=== PATIENT | female | born 1945 | race Caucasian/White ===

== ENCOUNTER → 2021-07-03 13:58 | Outpatient (CLI) | payer MEDICARE, OTHER, SELFPAY ==
--- NOTE | 2021-07-03 | DI.RAD.S_ITS ---
PROCEDURE: XR ABDOMEN MIN 2V INDICATIONS: Other specified symptoms and signs involving the d TECHNIQUE: 2 views of the abdomen were acquired. COMPARISON: None. FINDINGS: Surgical changes and devices: None. Bowel: No pneumoperitoneum. The bowel gas pattern is normal. No small bowel obstruction. Increased quantity of solid colonic stool is present. Soft tissues: No masses; visualized solid organ contours appear normal in size. Several scattered coarse calcifications in the bilateral upper quadrants, potentially liver and splenic granulomas. These range in size from 7 mm to 10 mm. Moderate abdominal aortic atherosclerosis. Bones: No suspicious bony abnormalities. Moderate focal leftward scoliosis with the apex at L3-4. IMPRESSION: 1. Colonic obstipation. 2. Bilateral upper quadrant calcifications, potentially evidence of remote granulomatous disease. Dictated by: Yanet Newman M.D. on 07/03/2021 at 16:56 Approved by: Yanet Newman M.D. on 07/03/2021 at 16:58
== END ==
PROVIDERS: PCP Registered Nurse; Referring Provider Internal Medicine Gastroenterology; Visit Provider Internal Medicine Gastroenterology
DX: R19.8 Other specified symptoms and signs involving the digestive system and abdomen (principal); K59.00 Constipation, unspecified; M41.86 Other forms of scoliosis, lumbar region; I70.0 Atherosclerosis of aorta
CPT/HCPCS: 74019

== ENCOUNTER → 2021-07-19 10:34 | Outpatient (CLI) | payer MEDICARE, OTHER, SELFPAY ==
--- NOTE | 2021-07-19 | DI.RAD.S_ITS ---
PROCEDURE: XR ABDOMEN MIN 2V INDICATIONS: Other specified symptoms and signs involving the digestive s TECHNIQUE: 2 views of the abdomen were acquired. COMPARISON: [facility], CR, XR ABDOMEN MIN 2V, 07/03/2021, 14:07. FINDINGS: Surgical changes and devices: None. Bowel: Large amount of stool is present. No specific transition point identified. Soft tissues: No masses; visualized solid organ contours appear normal in size. No suspicious abdominal calcifications. Bones: Levocurvature of the lumbar spine and diffuse discogenic changes. IMPRESSION: No specific transition point seen at this time although if the patient's symptoms do not improve, continued surveillance with abdominal series radiographs could be performed. Large amount of stool. This appears grossly unchanged to minimally increased since the prior study from 07/03/21. Dictated by: Andrew Goodman M.D. on 07/19/2021 at 13:31 Approved by: Andrew Goodman M.D. on 07/19/2021 at 13:32
== END ==
PROVIDERS: PCP Registered Nurse; Referring Provider Internal Medicine Gastroenterology; Visit Provider Internal Medicine Gastroenterology
DX: R19.8 Other specified symptoms and signs involving the digestive system and abdomen (principal)
CPT/HCPCS: 74019

== ENCOUNTER → 2023-01-03 10:36 | Outpatient (CLI) | payer MEDICARE, OTHER, SELFPAY ==
--- NOTE | 2023-01-03 | DI.MRI.S_ITS ---
PROCEDURE: MR LUMBAR SPINE WO CON INDICATIONS: Spinal stenosis, lumbar region with neurogenic claudication TECHNIQUE: Noncontrast sagittal T1 spin echo and T2 fast echo, coronal T2, sagittal STIR, and T2 fast spin echo through the lumbar spine. COMPARISON: [facility], CR, XR ABDOMEN MIN 2V, 07/19/2021, 10:37. FINDINGS: Image quality: Excellent. Alignment and Curvature: 5 lumbar type vertebral bodies are present by plain film. There is moderate leftward curvature of the mid lumbar spine. Loss of normal lumbar lordosis. 3 mm of retrolisthesis of L1 on L2, L2 on L3, and L3 on L4. 7 mm of anterolisthesis of L4 on L5. Bone Marrow: Marrow is of normal overall signal. No acute vertebral body compression fractures. Mild reactive signal throughout the endplates of the lumbar and lower thoracic spine. Spinal Cord: Conus medullaris terminates at the L1-L2 disc space level. Visualized cord demonstrates normal signal and size. Paraspinous Soft Tissues: No paravertebral masses. T12-L1: Moderate disc desiccation. Mild disc height loss and diffuse disc bulge. Mild facet and ligamentum flavum hypertrophy. No significant canal, or foraminal stenosis. L1-L2: Moderate disc desiccation. Mild diffuse disc bulge. Mild facet and ligamentum flavum hypertrophy. Mild canal stenosis. No foraminal stenosis. L2-L3: Moderate disc height loss and desiccation. Mild diffuse disc bulge. Mild facet and ligamentum flavum hypertrophy. Mild canal stenosis. Mild bilateral foraminal stenosis. L3-L4: Moderate disc height loss and desiccation. Mild diffuse disc bulge. Mild facet and ligamentum flavum hypertrophy. Mild epidural lipomatosis. Mild canal stenosis. Mild bilateral foraminal stenosis. L4-L5: Moderate disc height loss and desiccation. Mild diffuse disc bulge. Moderate facet hypertrophy. Mild ligamentum flavum hypertrophy and epidural lipomatosis. Mild canal stenosis. Mild bilateral foraminal stenosis. L5-S1: Moderate disc desiccation. Mild disc height loss and diffuse disc bulge with superimposed left far lateral protrusion. Mild bilateral facet hypertrophy. Mild canal stenosis. Moderate to severe left and mild right foraminal stenosis. Mild left L5 nerve root compression. IMPRESSION: 1. Multilevel degenerative disc and facet disease, as well as ligamentum flavum hypertrophy and epidural lipomatosis. 2. Mild multilevel canal stenosis. 3. Multilevel foraminal stenoses, worst at L5-S1 where there is associated intraforaminal nerve root compression. Recommend correlation with clinical symptoms to ascertain relevance of this finding. Dictated by: Stacy Noe M.D. on 01/03/2023 at 11:45 Transcribed by: ASHLEY on 01/03/2023 at 11:48 Approved by: Stacy Noe M.D. on 01/03/2023 at 15:53
== END ==
PROVIDERS: PCP Registered Nurse; Referring Provider Orthopaedic Surgery Orthopaedic Surgery of the Spine; Visit Provider Orthopaedic Surgery Orthopaedic Surgery of the Spine
DX: M48.062 Spinal stenosis, lumbar region with neurogenic claudication (principal); M48.07 Spinal stenosis, lumbosacral region; M51.36 Other intervertebral disc degeneration, lumbar region; M51.37 Other intervertebral disc degeneration, lumbosacral region; M47.896 Other spondylosis, lumbar region; M47.897 Other spondylosis, lumbosacral region
CPT/HCPCS: 72148

== ENCOUNTER → 2023-01-24 12:42 | Outpatient (CLI) | payer MEDICARE, OTHER, SELFPAY ==
--- NOTE | 2023-01-24 | DI.CT.S_ITS ---
PROCEDURE: CT LUMBAR SPINE WO CON INDICATIONS: Spinal stenosis, lumbar region with neurogenic claudication TECHNIQUE: Noncontrast 3 mm thick sections acquired from the T12 level to the sacrum. Sagittal and coronal reformats were constructed. For radiation dose reduction, the following was used: automated exposure control. COMPARISON: [facility], MR, MR LUMBAR SPINE WO CON, 01/03/2023, 10:48. FINDINGS: Image quality: Excellent. Bones: There is leftward scoliotic curvature with apex at L3-4. There is trace retrolisthesis of L1 on L2, trace anterolisthesis of L4 on L5, trace retrolisthesis of L5 on S1. Multilevel moderate to severe degenerative disc space narrowing most severe at L4-5 and L5-S1 with vacuum disc at L5-S1. Reactive endplate changes are present most prominent at L3-4 and L5-S1. Multilevel disc bulges are present from T12-L1 through L5-S1. In addition, multilevel mild spinal stenosis is present from L1-2 through L5-S1. Multilevel foraminal narrowing is present, mild L2-3, L3-4, L4-5 and moderate to severe left and mild right L5-S1. There appears to be mild compression of the exiting left L5 nerve root at L5-S1. Facet and ligamentum flavum hypertrophy are present. Soft tissues: No retroperitoneal masses or hematomas. Visualized aorta is normal in caliber. Prominent colonic diverticula as well as colonic stool is present. No obstruction. IMPRESSION: Multilevel spinal stenosis secondary to disc bulge with contributing effect of facet/ligamentum flavum arthropathy. Multilevel foraminal narrowing most severe at L5-S1 with compression of the exiting left L5 nerve root. Dictated by: Jacqueline Alanis M.D. on 01/24/2023 at 16:53 Approved by: Jacqueline Alanis M.D. on 01/24/2023 at 16:56
== END ==
PROVIDERS: PCP Registered Nurse; Referring Provider Orthopaedic Surgery Orthopaedic Surgery of the Spine; Visit Provider Orthopaedic Surgery Orthopaedic Surgery of the Spine
DX: M48.061 Spinal stenosis, lumbar region without neurogenic claudication (principal)
CPT/HCPCS: 72131

== ENCOUNTER 2023-02-27 06:03 | Inpatient (IN) | payer MEDICARE, OTHER, SELFPAY ==
[2023-02-14 08:35] VITALS: BMI 26.2
[2023-02-27] VITALS (18 sets, daily range): BP systolic 110–161; BP diastolic 62–90; PULSE 53–113; RESP 12–19; TEMP 35.8–36.5; O2SAT 92–100; BMI 26.1
--- NOTE | 2023-02-27 | DI.RAD.S_ITS ---
PROCEDURE: XR LUMBAR SPINE 2-3V INDICATIONS: L4-5 L5-S1 TLIF TECHNIQUE: 2 spot fluoroscopic intraoperative of the lumbar spine were acquired. COMPARISON: [facility], XR LUMBAR SPINE 2 OR 3 VIEWS, 01/24/2023, 11:34. FINDINGS: Spot fluoroscopic intraoperative images demonstrate interval postsurgical changes from posterior fixation at L4-5 and L5-S1 with pedicle screws, interbody rods, and disc spacers. IMPRESSION: Status post posterior spinal fusion from L4 through S1. Approved by: Jah Magana M.D. on 02/27/2023 at 13:41
[2023-02-27] MEDS: LACTATED RINGERS 1,000 ML 42 ML IV ×2 (07:13→09:59)
--- NOTE | 2023-02-27 07:42 | PM.PREOP ---
Pre-operative Note COVID-19 Criteria for continued procedure: Expected advancement of disease process, Possibility delay results in more complex future surgery or treatment, Increased loss of function, Continuing or worsening of significant or severe pain, Deterioration of the patient's condition or overall health and Delay expected to result in less-positive ultimate med/surg outcome Interval Note History & Physical reviewed/Exam performed by Physician: Yes Changes to H&P: No
[2023-02-27] MEDS: CEFAZOLIN 2 GM/100 ML PREMIX 100 ML IV ×3 (08:00→23:06)
--- NOTE | 2023-02-27 08:21 | SUR.OPER ---
Prone on spine table, head in foam head support, padded chest and pelvic supports, gel pad at knees, lower legs supported by pillows; nipples, genitalia and toes free of pressure, arms secured on foam padded arm boards at <90 degrees abduction. Tape over blanket at thigh secured to table.
[2023-02-27] MEDS: BUPIVACAINE 0.25% (PF) 60 ML, EPINEPHrine 0.15 MG INJ (08:26)
[2023-02-27] MEDS: BUPIVACAINE LIPOSOME 266 MG/20 ML VIAL INJ (08:27)
--- NOTE | 2023-02-27 11:38 | PM.OP.1 ---
Operative Date/Time/Diagnoses Date of procedure: 02/27/23 Time of procedure: 08:15 Pre-op diagnosis: 1. L4-5, L5-S1 spondylolisthesis 2. Lumbar scoliosis 3. Lumbar spinal stenosis Post-op diagnosis: same Procedure & Clinicians Procedure: 1. L4-5, L5-S1 Postero-lateral and posterior interbody fusion 2. L4-5, L5-S1 interbody cage placement. 3. L4-5, L5-S1 decompressive laminectomy with bilateral facetecomies 4. L4-5, L5-S1 Posterior segmental instrumentation 5. Kelley of bone marrow from iliac crest 6. Utilization of microsurgical technique and operating microscope 7. Utilization of robotic assisted navigation Same procedure as scheduled: Yes Indications: Patient has been having chronic back pain and worsening lumbar radiculopathy. Patient failed multiple conservative management with worsening pain weakness and numbness in her lower extremity. Patient has been having difficulty performing activity of daily living. After discussing risks benefits of treatment options, patient elected proceed with surgery. Surgeon: Keith Martin Director Of Food And Nutrition Services: Altagracia Del Rio Click Yes if Unassisted: No Anesthesia Type: General Operative Notes Closure Type: primary Specimen(s): none sent Prosthetic devices, grafts, tissues, transplants, or devices: Globus CREO MIS screws, Rise cages Applied: catheter Estimated Blood Loss (mL): 150 Blood products transfused: none Procedure in detail: Patient was seen in the preoperative area. Risks and benefits of the surgery was discussed with the patient. Informed consent was obtained from the patient and placed in the chart. Surgical site was marked. Patient was taken to the operative room. General anesthesia was administered. Prophylactic antibiotic was given to the patient less than 30 min before the incision was made. Patient was placed into a prone position on the Elkin table. Patient's back was then prepped and draped in the sterile fashion. Time-out was performed at this time. After patient was prepped and draped, patient's PSIS was palpated and marked bilaterally. Small 1 cm incision was made over the PSIS for placement of the reference probes. Two trocar was placed into the PSIS 1 on each side. The reference probe was attached to the trocar of the reference apparatus. At this time the C-arm imaging was used to confirm AP and lateral of L4-L5, L5-S1 vertebrae and merged the C-arm imaging using the [employer] robotic navigation system with the CT of the lumbar spine. After successful merging was completed and confirmed, skin marker was used to baltazar out the skin incision using the [employer] robotic arm. Bilateral incision was made at this time. Pre templated trajectory was used and guided using the [employer] robotic navigation system for bilateral L4, L5, S1 pedicle screw placement. This was done by using the robotic arm to guide the high-speed bur to make a cortical entry point. Next a drill was placed also using the robotic arm and guided using the navigation system drilling partially through bilateral L4, L5 and S1 pedicles. Next L4, L5, S1 pedicle screws it was pre templated and measured was placed onto the power driver license agent and inserted into the pedicles bilaterally. After all 6 screws were placed C-arm imaging was taken of both AP and lateral to confirm the placement. Excellent placement of the screws were confirmed and a matched precisely with the pre planned screw placement using the navigation system. MARs retractor was inserted using [employer] guidence. Globus MARS retractors was placed inside the incision and docked onto the L4 and L5 lamina. Using microsurgical technique and operating microscope, a L4, L5 laminectomy and L4-5, L5-S1 facetectomy was performed using a Kerrison rongeur. The laminectomy and facetectomy was performed in order to decompress patient's cauda equina as well as the nerve roots exiting at the L4-5, L5-S1 level. Patient was found have severe lateral recess and neural foramen stenosis which was fully decompressed after the laminectomy facetectomy. More than 75% of the facets were removed during the process of decompression rendering L4-5, L5-S1 level grossly unstable and required a fusion procedure at the same time. The disc space at L4-5, L5-S1 was identified, and a total diskectomy was performed at L4-5, L5-S1 level. The endplates were decorticated using a rasp and shaver. The total diskectomy and decortication was performed at L4-5, L5-S1 level in order to to accomplish a L4-5, L5-S1 fusion. The local bone from the laminectomy and facetectomy was saved for local bone grafting. After the total diskectomy and decortication was completed, Trifecta bone graft material was combined with local bone that was harvested earlier. At this time, a separate skin is incision was made over the iliac crest. A Jamshidi needle was inserted into the iliac crest through a separate skin incision. 5 cc of bone marrow aspiration was obtained through the separate skin incision using a Jamshidi needle from the iliac crest. The bone marrow aspiration was combined with local bone and the Trifecta bone grafting material. The bone grafting material was placed into the L4-5, L5-S1 interbody space along with a expandable cage. The cage was expanded to its maximum height using the torque limiting screwdriver. The disc preparation as well as the cage insertion were also performed under navigation guidance. After the cage was placed, AP and lateral C-arm imaging was taken to confirm placement of the cage and excellent position was confirmed. Globus MARS retractor was inserted and docked onto the L4-5, L5-S1 posterolateral gutter on the right side. Using the power drill, posterior-lateral decortication was performed at L4-5, L5-S1 level until bleeding cortical bone was identified. The remaining bone grafting material was placed into the L4-5, L5-S1 posterior lateral gutter he order to accomplish posterolateral fusion at the L4-5, L5-S1 level. At this time the tulips were attached to the L4, L5, S1 pedicle screw shanks. After measuring the length of the rods, they were inserted into the tulips of the pedicle screws and locked in place using locking caps and torque limiting screwdriver bilaterally. Total 6 caps and 2 titanium rods was used in order to complete the posterior instrumentation construct. After all the hardware was placed, and confirmed with AP and lateral C-arm imaging, the wound was then irrigated with sterile normal saline and packed with Ray-Brenda gauze for 3 min to accomplish hemostasis. After the gauze was removed the deep fascia was closed with #1 Vicryl suture. The subcutaneous layer was closed with 2-0 Vicryl. The skin was closed with skin zeynep. Patient tolerated the procedure well. There were no complications. Neuro monitoring system was used to monitor patient's neurologic status throughout entire procedure. There was no disturbance of the neural monitoring signals throughout the case. The Operation could not have been safely performed without compromising the technical result or length of the procedure, without the assistance of a skilled surgical instrument mechanic. The surgical instrument mechanic was medically necessary for proper positioning, retraction and manipulation of instruments, proper exposure, surgical preparation, and manipulation of tissue. Complications: none Post-operative Condition: stable Disposition: PACU Plan for aftercare: Admit to inpatient hospital
[2023-02-27] MEDS: HYDROMORPHONE 2 MG INJ IV ×4 (12:22→12:44)
[2023-02-27] MEDS: OXYCODONE IR 5 MG TABLET PO ×3 (12:23→20:36)
[2023-02-27] MEDS: hydrOXYzine 50 MG/ML INJ 25 MG IM (12:48)
[2023-02-27] MEDS: LACTATED RINGERS 1,000 ML 125 ML IV (14:18)
[2023-02-27] MEDS: SENNOSIDES 8.6 MG TABLET 17.2 MG PO (20:39)
[2023-02-27] MEDS: DOCUSATE 100 MG CAPSULE PO (20:39)
[2023-02-27] MEDS: ACETAMINOPHEN 325 MG TABLET 650 MG PO (20:40)
[2023-02-27] MEDS: HYDROMORPHONE 0.5 MG INJ IV (21:19)
[2023-02-27] MEDS: METFORMIN HCL 500 MG TABLET 1000 MG PO (21:21)
[2023-02-27] MEDS: OXYCODONE IR 10 MG TABLET PO (23:06)
[2023-02-28] VITALS: BP 114/62; PULSE 94; RESP 17; TEMP 36.6; O2SAT 96
[2023-02-28] MEDS: OXYCODONE IR 10 MG TABLET PO ×4 (03:57→13:03)
[2023-02-28] MEDS: ACETAMINOPHEN 325 MG TABLET 650 MG PO ×3 (03:58→16:52)
[2023-02-28 04:00] VITALS: BP 112/62; PULSE 82; RESP 16; TEMP 36.3; O2SAT 97
[2023-02-28 05:31] LABS: Hematocrit 27.1 % (36-46); Hemoglobin 9.3 g/dL (12.0-16.0)
[2023-02-28] MEDS: PANTOPRAZOLE DR 40 MG TABLET PO (07:00)
[2023-02-28] MEDS: LACTATED RINGERS 1,000 ML 125 ML IV (07:06)
--- NOTE | 2023-02-28 07:08 | PM.PNPO.1 ---
Subjective Subjective Date Patient Seen: 02/28/23 Time Patient Seen: 07:09 Interval history: Patient states her pain was severe overnight. No fever or chills. No nausea or vomiting. Patient has not yet been out of bed. Exam Vital Signs (past 8 hours): - 02/28/23 00:00 02/28/23 04:00 Temperature 97.9 F 97.3 F L Pulse Rate 94 H 82 Respiratory Rate 17 16 Blood Pressure 114/62 112/62 Pulse Oximetry 96 97 Oxygen Flow Rate 2 2 Oxygen Delivery Method Nasal Cannula Oxygen Flow Rate 2 Narrative Exam Narrative: 77-year-old female resting comfortably in bed in no apparent distress. Motor functions intact bilateral lower extremities. Sensation grossly intact to light touch bilateral lower extremities. Const General: cooperative and comfortable Nutritional Appearance: average body habitus Orientation: alert Resp Effort & Inspection: normal respiratory effort and able to speak in complete sentences Objective Labs 02/28/23 04:30 Labs: Laboratory Results - last 24 hr 02/28/23 04:30 Hgb 9.3 L Hct 27.1 L PFSH Medical History Asthma Depression Diabetes (~2020) Diverticulosis Elevated cholesterol Hearing impaired HTN (hypertension) Sciatica Spinal stenosis TIA (transient ischemic attack) (~2020) Surgical History History of hysterectomy Hx of bilateral cataract extraction Hx of tubal ligation Social History household members: spouse Smoking Status: Former smoker Assessment & Plan Post-op Postoperative Procedures: Procedures Operation Date: 02/27/23 07:45 Actual Procedure Side Surgeon p L4-5, L5-S1 TLIF w. posterior instrument-Robot Keith Martin MD Postoperative day: 1 Postoperative status: marginal pain control Postoperative status narrative: Progressing as expected status post L4-L5, L5-S1 fusion Postoperative plan narrative: Multimodal pain management Mobilize with physical therapy, limit bending, twisting, lifting Discharge likely home today or tomorrow. Quality VTE Deep Vein Thrombosis/Pulmonary Embolism Present on Admission: No
[2023-02-28] MEDS: NAPROXEN 250 MG TABLET PO (08:51)
[2023-02-28] MEDS: buPROPion SR 150 MG TAB 300 MG PO (08:52)
[2023-02-28] MEDS: MAGNESIUM HYDROXIDE 30 ML UDC PO (08:52)
[2023-02-28] MEDS: ASPIRIN EC 81 MG TABLET PO (08:52)
[2023-02-28] MEDS: DOCUSATE 100 MG CAPSULE PO ×2 (08:52→20:37)
[2023-02-28] MEDS: METFORMIN HCL 500 MG TABLET PO (08:52)
[2023-02-28] MEDS: AMLODIPINE 5 MG TABLET 10 MG PO (08:52)
[2023-02-28] MEDS: DULOXETINE 30 MG CAPSULE 60 MG PO (08:53)
[2023-02-28] MEDS: polyethylene glycoL 3350 17 GM POWD.PACK PO (08:53)
[2023-02-28 09:03] VITALS: BP 133/73; PULSE 85; RESP 16; TEMP 36.4; O2SAT 97
--- NOTE | 2023-02-28 09:08 | CM.DANOTE ---
DCP: Chart review for case, met with patient at bedside, they agree to case management assessment. Completed DCP assessment based on information available. Patient is a 77 year old admitted for planned lumbar surgery. 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 States her daughter lives nearby in [place] is an OT and has provided DME FWW, 4WW, commode, shower chair for her recovery. CC: Lumbar stenosis, with planned surgery by Dr. Martin PCP: Adelaide Alvarez in [place]. Payer: Medicare DCP: Home with supportive family. Danielle Owusu RN CM Discharge Planning/Care Management CM Discharge Assessment Start: 02/28/23 09:04 Freq: Status: Active Protocol: Document 02/28/23 09:04 BQ (Rec: 02/28/23 09:08 BQ [id number]) Discharge Planning Assessment Assigned Assistant Baseball Coach Danielle Owusu RN CM DPOA/Assigned Designee Name /Daughter Advance Directives? Yes Advance Directives on File Yes History Provided By Patient,Family Member Has Patient been admitted in last 30 No days? Prior Living Arrangements House Household Members spouse Type of transporation used prior to Drives own vehicle admit Independent with ADL's Yes Is patient alert and oriented? Yes Caregiver for Another No DME Already Rented / Owned Bath Bench,FWW / Walker, Bedside Commode Comment States daughter is an OT who has provided DME Barriers to Discharge No Discharge Plan Home Referrals Initiated None needed Medicare Choice List Provided No Whiteboard Updated in Patient Room with Yes name and ext. # of Assistant Baseball Coach Review Status In Process Next Review Type Continued Stay Review Pre-Anesthesia Assessment Start: 02/14/23 08:35 Freq: Status: Active Protocol: Document 02/14/23 08:35 CAB (Rec: 02/14/23 09:39 CAB [id number]) Pre-Anesthesia Assessment Patient Information Reviewed Via Phone Assessment Assessment Completed With Patient Diagnostic Results BMP/CMP,CBC,EKG Comment Outside labs/EKG scanned Primary Care Provider Adelaide Alvarez Seen Specialist in Last 12 Months Yes Specialist Seen Orthopedist Primary Language Amharic Sales Review Clerk Required No Height 162.56 cm Weight 69.4 kg Body Mass Index (BMI) 26.2 Hearing Ability Hearing Impaired,Use of Hearing Aid Visual Assist Glasses Dentition Type Teeth, Natural Present,Teeth, Missing Barriers to Learning Memory Hx Anesthesia Reactions No Hx Family Anesthesia Reaction No Hx Malignant Hyperthermia No Hx Blood Transfusions No Anesthesia Review Requested No Concrete Layer No alcohol intake current alcohol intake frequency holidays/special occasions only Smoking Status Former smoker how long ago did patient quit smoking Quit 1989 Pain Present Pain Reported Musculoskeletal Symptoms Abnormal Gait,Back Pain, Difficulty Walking,Muscle Weakness,Radiating Pain into Limb History of Falling (Recent or History of No ) Patient is completely paralyzed or No completely immobile Mental Status Oriented to own ability Is patient on oxygen? No Does patient have GRAMAJO/SOB No Hx Sleep Apnea No Currently Taking a Beta Jerica No Hx Chest Pain No Hx SOB No Hx Syncope or Dizziness No Anti-Coagulant Therapy No Has a Video Game Animator No Cardiac Testing No Hx Pacemaker/ICD No Pacemaker Rep Required? No Cardiac Clearance Received Not Applicable Diet Type At Home Regular Dysphagia No Gastrointestinal Symptoms Constipation,Diarrhea Bladder Pattern Frequency,Nocturia Urinary Catheter Present No Hx Urinary Self Catheterization No Diabetes Yes: Checks blood sugar every other day HgbA1C 6.5 Date 01/14/23 Patient No Lactating No Hx Drug Resistant Organism No Presence of External or Internal Medical Yes: Aj eye IOLs Devices Have you had any close contact with No someone diagnosed with COVID-19? Received a COVID vaccine? Yes Received all doses? Yes Marital Status Lives With spouse Current Living Arrangements House Number of Floors (Floors) One Floor Support System Child/Children,Spouse Comment Daughter will be stopping in to check on patient Does the Patient Have Assistance After Yes Surgery Patient Discharge Plan Description Return Home Comment Pt advised 1-2 day length of stay per surgeon Feels Safe in Current Environment Yes Been Physically Hurt or Threatened By a No Person in Current Environment Do you have thoughts of harming yourself None or others? Are you currently considering suicide? No Do you have a plan to hurt yourself or No Plan others? Do You Have Any Spiritual Beliefs That No May Affect Your HC Choices? Do You Have Any Cultural Practices That No May Affect Your HC Choices? Comment Buddhist Who Can We Speak to About Patient's Care Family, friends Identifying Code for Release of Patient Declines to issue Information Health Care Proxy/Next of Kin Uziel () Health Care Proxy Emergency Contact Name Leigh Ann (daughter) Emergency Contact Advance Directives? Yes Advance Directives on File No Requested Patient Bring Advanced Yes Directives DOS Power of Personal Financial Counselor Yes Power of Personal Financial Counselor Name Leigh Ann (daughter) Power of Personal Financial Counselor PAC Instructions Diabetes instructions,Durable medical equipment,Medications to take/avoid,Nasal antibiotic ,No ETOH/petroleum product on skin DOS,NPO,Post-op transportation,Pre-surgical wash,Sensory aids,Sturdy shoes /comfortable clothes,Do not bring valuables and remove jewelry
[2023-02-28 10:08] VITALS: O2SAT 97
[2023-02-28] MEDS: hydrOXYzine pamoate 25 MG CAPSULE PO ×2 (10:08→16:52)
--- NOTE | 2023-02-28 10:15 | PT.IIE ---
Current Diagnoses Spondylolisthesis, lumbar region (02/27/23) Spinal stenosis, lumbar region with neurogenic claudication (02/27/23) Surgery Performed Operation Date: 02/27/23 07:45 Actual Procedures p L4-5, L5-S1 TLIF w. posterior instrument-Robot - Keith Martin MD Surgical History (Last Reviewed 02/28/23 @ 07:09 by Jose M Rios PA-C) History of hysterectomy Hx of bilateral cataract extraction Hx of tubal ligation Medical History (Last Reviewed 02/28/23 @ 07:09 by Jose M Rios PA-C) Asthma Depression Diabetes (~2020) Diverticulosis Elevated cholesterol Hearing impaired HTN (hypertension) Sciatica Spinal stenosis TIA (transient ischemic attack) (~2020) Physical Therapy Inpatient Evaluation/Re-Eval M1 PT/OT-IP Prior Functional Status Start: 02/28/23 11:23 Freq: NEEDED Status: Active Protocol: Document 02/28/23 10:15 AB (Rec: 02/28/23 11:33 AB [email or web address]) Medical Review Prior Functional Status Medical History Reviewed Yes Communication able to make needs known Mobility and Gait pt stated that she is modified independent with all mobilities and ambulation without AD but has started using a SPC on/off for the last might due to back pain Social History Household Members spouse Living Arrangements House Number of Floors (Floors) One Floor Number of Stairs To Enter/Railing? 1 step to enter Home Environment High Toilet,Tub/Shower Home Equipment Front Wheel Walker,Four Wheel Walker,Straight Cane,Shower Seat with Backrest,Hand Held Shower Additional Social History Comment pt has an adjustable bed with R rail M2 PT-IP Current Condition Start: 02/28/23 11:23 Freq: NEEDED Status: Active Protocol: Document 02/28/23 10:15 AB (Rec: 02/28/23 11:33 AB [id number]) Physical Therapy Current Condition Current Condition Evaluation Date 02/28/23 Treatment Diagnosis s/p L4-5, L5S1 TLIF; difficulty in walking Onset Date 02/27/23 M3 PT-IP Subjective Start: 02/28/23 11:23 Freq: NEEDED Status: Active Protocol: Document 02/28/23 10:15 AB (Rec: 02/28/23 11:33 AB [email or web address]) Subjective Physical Therapy Visit Type Type Initial Evaluation Visit Start Time 10:15 Visit Stop Time 11:09 Total Visit Minutes 54 Number of INSIGHT LEADER Visits 0 Physical Therapy Visit Comments Patient Comments c/o increase back pain but agreeable to do PT Therapy Pain Assessment Pain When Pain Assessed At Rest Pain Present Pain Present Pain Reported Location back Intensity 5 Scale Used increases to 8/10 with mobility Pain Behaviors Facial Grimacing,Guarding, Wincing Pain Management Techniques Apply Cold,Distraction, Modification of Treatment,Re- positioning,Timing of Activity with Medications M4 PT-IP Mobility and Gait Start: 02/28/23 11:23 Freq: NEEDED Status: Active Protocol: Document 02/28/23 10:15 AB (Rec: 02/28/23 11:33 AB [id number]) PT-Bed Mobility Assessment Rolling Type of Rolling Log Rolling Level of Assist Moderate Assistance Supine to Sit Supine to Sit Moderate Assistance PT-Transfer Assessment Sit to and From Stand Sit to and from Stand Moderate Assistance,Maximum Assistance,1 Person Assistance ,Use of Upper Extremities Equipment Transfer Assistive Device Gait Belt,Front Wheeled Walker Orthotic/Prosthetic Devices or Brace: No Transfers Transfer Destination Chair Transfer Technique ambulated Transfer Ability Level of Assist Moderate Assistance,1 Person Assistance,Use of Upper Extremities Comments Mobility Comments educated pt on back precautions and log roll bed mobility. completed log roll supine to sit mod A and max cues. able to sit on EOB SBA. c/o increase back pain and BLE pain to 8/10. nurse aware . completed sit to stand mod to max A and max cues. ambulated in room using FWW mod A ~ 12 ft. presents with slow paced step to gait with decrease LE elevation. pt agreed to sit on the chair. unable to walk farther. positioned on the chair. ice pack provided. call light and table placed within reach. informed regarding d/c plan of SNF vs home with assist and HHPT depending on progress. pt understood. Gait Assessment Gait Gait Assistance Required: Moderate Assistance Distance (Feet) 12 Able to Maintain Weight Bearing Status Yes During Gait Assistive Devices Assistive Device Gait Belt,Front Wheeled Walker Orthotic/Prosthetic Devices or Brace: No Gait Deviations General Gait Pattern Decreased Stride Length, Decreased Feet Clearance,Step- to Gait Factors Limiting Gait Function Factors Limiting Gait Function Decreased Activity Tolerance, Decreased Strength,Difficulty Following Directions,Limited Range of Motion,Pain,Poor Balance,Poor Safety Awareness PT-Balance Assessment Sitting Balance and Reactions Static Sitting Balance Ability Good Dynamic Sitting Balance Ability Good Standing Balance and Reactions Static Standing Balance Ability Fair Dynamic Standing Balance Ability Poor Device Used FWW M5 PT-IP Objective Assessments Start: 02/28/23 11:23 Freq: NEEDED Status: Active Protocol: Document 02/28/23 10:15 AB (Rec: 02/28/23 11:33 AB [id number]) Orientation Orientation/Cognition Level of Alertness Alert Orientation Name,Place,Situation Language Function Ability Hard of Hearing Safety Awareness Decreased Safety Awareness Memory Description No Deficits Noted Gross Range of Motion Lower Extremity ROM Assessment Within Functional Limits Strength Lower Extremity Strength Assessment Within Functional Limits Coordination Assessment Gross Coordination Gross Coordination WNL Sensation Assessment Sensation Gross Sensation WNL Muscle Tone Muscle Tone WNL Yes M6 PT-IP Treatment Start: 02/28/23 11:23 Freq: NEEDED Status: Active Protocol: Document 02/28/23 10:15 AB (Rec: 02/28/23 11:33 AB [id number]) Physical Therapy Treatment Education Education Provided Precautions,Weight Bearing Status,Post-Op Packet,Safety M7 PT-IP Assessment and Plan Start: 02/28/23 11:23 Freq: NEEDED Status: Active Protocol: Document 02/28/23 10:15 AB (Rec: 02/28/23 11:33 AB [id number]) PT Summary Assessment and Plan Potential Rehabilitation Potential Fair Status of Condition at Evaluation Evolving Summary Impairments Pain,ROM,Strength,Balance, Coordination,Sensation,Tone, Cognition,Bed Mobility, Transfers,Gait,Activity Tolerance Assessment Summary pt s/p L4-5, L5S1 TLIF POD 1 and has c/o pain to 8/10 with mobility. pt requiring mod to max A with mobility using FWW ; only able to ambulate ~ 12 ft using FWW mod A and unable to tolerate much activity due to c/o increase pain. pt stated that her spouse is 90 y /o and is worried if spouse will be able to assist her. Caregiver training will be conducted when appropriate. d /c plan at this time: SNF vs home with 24/ and HHPT. will continue to assess progress. Goals Bed Mobility Goal Standby Assistance Transfer Goal Standby Assistance,Front Wheeled Walker Gait Goal Standby Assistance,Front Wheel Walker Gait Distance 200 Other Goals up/down 1 steps CGA using FWW Days to Meet Goals 5 Frequency of Treatment Frequency Of Treatment Twice a Day Treatment Plan Physical Therapy Treatment Plan Bed Mobility Training,Transfer Training,Gait Training, Therapeutic Exercise,Balance Retraining,Post Op Education, Discharge Planning,Hot or Cold Pack,Neuromuscular Re-ed, Coordination Retraining,Manual Therapy Precautions Lumbar Precautions Log Roll,No Twisting,Limit Bending,Lifting Restriction of 10 lbs,Gait Belt above Incisional Area Recommendations To Nursing Amount of Assist Needed 1 Person Assist Discharge Recommendations PT Discharge Recommendations Home with 25/03 Assist Available,Home Health,SNF Rehab,Home vs SNF Transportation Needs at Discharge Private Vehicle,Wheelchair/ Cabulance
[2023-02-28 12:54] VITALS: BP 117/78; PULSE 98; RESP 20; O2SAT 97
--- NOTE | 2023-02-28 12:56 | OT.IP.EVAL ---
Addendum entered and electronically signed by Jackie Cage OT 02/28/23 17:32: edit Original Note: Current Diagnoses Spondylolisthesis, lumbar region (02/27/23) Spinal stenosis, lumbar region with neurogenic claudication (02/27/23) Surgery Performed Operation Date: 02/27/23 07:45 Actual Procedures p L4-5, L5-S1 TLIF w. posterior instrument-Robot - Keith Martin MD Past Medical History (Last Reviewed 02/28/23 @ 07:09 by Jose M Rios PA-C) Asthma Depression Diabetes (~2020) Diverticulosis Elevated cholesterol Hearing impaired HTN (hypertension) Sciatica Spinal stenosis TIA (transient ischemic attack) (~2020) Surgical History (Last Reviewed 02/28/23 @ 07:09 by Jose M Rios PA-C) History of hysterectomy Hx of bilateral cataract extraction Hx of tubal ligation Occupational Therapy Inpatient Evaluation/Re-Eval M1 PT/OT-IP Prior Functional Status Start: 02/28/23 16:51 Freq: NEEDED Status: Active Protocol: Document 02/28/23 12:05 [facility] (Rec: 02/28/23 17:20 [facility] [id number]) Medical Review Prior Functional Status Medical History Reviewed Yes Communication able to make needs known Mobility and Gait pt stated that she is modified independent with all mobilities and ambulation without AD but has started using a SPC on/off for the last might due to back pain Activities of Daily Living and IADL's Pt states would have pain with ADl and IADL needs. Social History Household Members spouse Living Arrangements House Number of Floors (Floors) One Floor Number of Stairs To Enter/Railing? 1 step to enter Home Environment High Toilet,Tub/Shower Home Equipment Front Wheel Walker,Four Wheel Walker,Straight Cane,Shower Seat with Backrest,Hand Held Shower Additional Social History Comment pt has an adjustable bed with R rail M2 OT-IP Current Condition Start: 02/28/23 16:51 Freq: Status: Active Protocol: Document 02/28/23 12:05 [facility] (Rec: 02/28/23 17:20 [facility] [id number]) Occupational Therapy Current Condition Current Condition Evaluation Date 02/28/23 Treatment Diagnosis S/P L 4-5, L5-S1 Diagnosis Onset Date 02/27/23 Post Operative Precautions Lumbar Precautions Log Roll,No Twisting,Limit Bending,Lifting Restriction of 10 lbs,Gait Belt above Incisional Area M3 OT- IP Subjective and Pain Start: 02/28/23 16:51 Freq: Status: Active Protocol: Document 02/28/23 12:05 [facility] (Rec: 02/28/23 17:20 [facility] [id number]) OT- Subjective Occupational Therapy Visit Type Type Initial Evaluation Visit Start Time 12:05 Visit Stop Time 12:56 Total Visit Minutes 51 Occupational Therapy Visit Comments Patient Comments Pt agreed to get up, pt's present at the end of the session. Patient/Caregiver Goals To go home. OT Pain Assessment Pain When Pain Assessed At Rest Pain Present Pain Present Pain Reported Location back Intensity 7 Scale Used Numeric (0 - 10) M4 OT- IP ADL's Start: 02/28/23 16:51 Freq: Status: Active Protocol: Document 02/28/23 12:05 [facility] (Rec: 02/28/23 17:20 [facility] [id number]) OT [id number] General Evaluation Self-Feeding Ability Independent OT ADL-Grooming General Evaluation Grooming Ability Independent Comments OT Grooming Comments Able to do while FWW in front of her at the sink. OT ADL-Oral Care General Eval Oral Care Ability Independent Comments Oral Care Comments Pt needing initial vc to spit into a cup to best follow her back precautions. Pt having difficulty to hinge at her hips. OT ADL-Dressing General Eval Lower Body Dressing Ability Maximum Assistance Comments OT Dressing Comments Able to show pt use of sock aid for sock management needs. Pt able to able to show good demonstration for use of the sock aid. OT ADL-Toileting Comments OT Toileting Comments Not performed. Suggested use of brief/pads at night so not having to flores to the bathroom . OT ADL-Bathing Comments OT Bathing Comments Not performed. Suggested at this time at home best to use the walk in shower and put the shower chair there and to install a HHSP would be the safest. M5 OT- IP IADL's Start: 02/28/23 16:51 Freq: Status: Active Protocol: Document 02/28/23 12:05 [facility] (Rec: 02/28/23 17:20 [facility] [id number]) OT-Instrumental Activities of Daily Living Deficits IADL Deficits Identified Deficits Home Safety Awareness Awareness of Need for Assistance at Home Good Awareness Ability to Problem Solve Emergency Able to Problem Solve Situations Home Safety Comments Pt has supportive family to be able to assist with her needs . M6 OT- IP Functional Cognition Start: 02/28/23 16:51 Freq: Status: Active Protocol: Document 02/28/23 12:05 [facility] (Rec: 02/28/23 17:20 [facility] [id number]) Cognitive Factors Limiting Selfcare Function Cognitive Ability Level of Alertness Alert Patient Orientation Name,Place,Situation Attention Span Ability Capable of Focused Attention, Capable of Sustained Attention Ability to Follow Commands Able to Follow One Step Commands Safety Awareness Decreased Recall of Precautions,Decreased Ability to Apply Precautions Cognitive Comments Cognitive Assessment Comments Pt needing cues to remember her back precautions and to be able to incorporate into her ADL and mobility needs. Pt needing safety cues not to keep the FWW too close in front of her initially. M7 OT- IP Mobility and Balance Start: 02/28/23 16:51 Freq: Status: Active Protocol: Document 02/28/23 12:05 [facility] (Rec: 02/28/23 17:20 [facility] [id number]) OT- Bed Mobility Assessment Supine to Sit Supine to Sit Assist Minimal Assistance Sit to Supine Sit to Supine Assist Moderate Assistance OT-Transfer Assessment Sit to and From Stand Sit to and from Stand Minimal Assistance Transfers Transfer Ability Contact Guard Assistance Technique Transfer Destination Bed,Chair Devices Transfer Assistive Devices Gait Belt,Front Wheeled Walker Comments Mobility Comments Pt AUTUMN to help get her trunk upright and MODA to help get her legs back into bed. Pt AUTUMN to stand and CGA to walk with the FWW to the sink and then to the recliner. Pt's educated how to dhruv/ doff the gait belt and how to assist pt to stand and transfer . OT- Balance Assessment Sitting Balance and Reactions Static Sitting Balance Ability Good Dynamic Sitting Balance Ability Good Standing Balance and Reactions Static Standing Balance Ability Fair Dynamic Standing Balance Ability Fair M9 OT- IP Assessment and Plan Start: 02/28/23 16:51 Freq: Status: Active Protocol: Document 02/28/23 12:05 [facility] (Rec: 02/28/23 17:20 [facility] [id number]) OT Summary Assessment and Plan Potential Rehabilitation Potential Good Analytic Complexity at Evaluation Low Summary OT Impairments Pain,Strength,Balance, Functional Mobility,Dressing, Toileting,Bathing,Toilet Transfers,Shower Transfers, Activity Tolerance Progress Towards Goals Progressing Toward Goals Assessment Summary Pt low complexity and main barrier is pain and needing some assist for bed mobility needs at this time. Pt would benefit from more caregiver training for ADL and mobility needs. Pt to go home with 24/7 assist available and home health when medically stable. Goals Grooming Goal Independent Dressing Goal Independent Toileting Goal Independent Bathing Goal Minimal Assistance Toilet Transfer Goal Independent Shower Transfer Goal Standby Assistance Patient/Caregiver Education Goal Demonstrate Post-Op Precautions,Caregiver Independent Assisting Patient Days to Meet Goals 7 Frequency of Treatment Frequency Of Treatment Once a Day Treatment Plan OT Treatment Plan ADL Training,Functional Mobility,Patient/Family Education,Discharge Planning Other Treatment Recommendations and Next caregiver training Treatment Focus Discharge Recommendations OT Discharge Recommendations Home with 24/7 Assist Available,Home Health Home Equipment Needs hand held shower spray, sock aid Transportation Needs at Discharge Private Vehicle
--- NOTE | 2023-02-28 15:26 | PT.IPTN ---
Current Diagnoses Spondylolisthesis, lumbar region (02/27/23) Spinal stenosis, lumbar region with neurogenic claudication (02/27/23) Surgery Performed Operation Date: 02/27/23 07:45 Actual Procedures p L4-5, L5-S1 TLIF w. posterior instrument-Robot - Keith Martin MD Physical Therapy Treatment Note M2 PT-IP Current Condition Start: 02/28/23 11:23 Freq: NEEDED Status: Active Protocol: Document 02/28/23 10:15 AB (Rec: 02/28/23 11:33 AB [id number]) Physical Therapy Current Condition Current Condition Evaluation Date 02/28/23 Treatment Diagnosis s/p L4-5, L5S1 TLIF; difficulty in walking Onset Date 02/27/23 M3 PT-IP Subjective Start: 02/28/23 11:23 Freq: NEEDED Status: Active Protocol: Document 02/28/23 14:51 [place] (Rec: 02/28/23 16:38 KS [id number]) Subjective Physical Therapy Visit Type Type Treatment Note Visit Start Time 14:51 Visit Stop Time 15:26 Total Visit Minutes 35 Notes present for initiation of caregiver training - Gayathri caregiver training robbin for 03/01 at 10:30 AM Number of MARKER MAKER Visits 1 Physical Therapy Visit Comments Patient Comments Agreeable to work w/ PT Therapy Pain Assessment Pain When Pain Assessed During Mobility Pain Present Pain Present Pain Reported Location back Intensity 6 Pain Behaviors Guarding,Wincing Pain Management Techniques Distraction,Elevation, Modification of Treatment,Re- positioning,Timing of Activity with Medications M4 PT-IP Mobility and Gait Start: 02/28/23 11:23 Freq: NEEDED Status: Active Protocol: Document 02/28/23 14:51 [place] (Rec: 02/28/23 16:38 [place] [id number]) PT-Bed Mobility Assessment Rolling Type of Rolling Log Rolling,Roll to Right Level of Assist Contact Guard Assistance,1 Person Assistance Supine to Sit Supine to Sit Minimal Assistance,1 Person Assistance Sit to Supine Sit to Supine Moderate Assistance,1 Person Assistance Scooting Scooting to Edge of Bed Contact Guard Assistance PT-Transfer Assessment Sit to and From Stand Sit to and from Stand Minimal Assistance,1 Person Assistance,Use of Upper Extremities Equipment Transfer Assistive Device Gait Belt,Front Wheeled Walker Orthotic/Prosthetic Devices or Brace: No Transfers Transfer Destination Bed,Chair Transfer Technique ambulated Transfer Ability Level of Assist Minimal Assistance,1 Person Assistance,Use of Upper Extremities Comments Mobility Comments Pt in bed upon arrival w/ in room. Able to recall 3/3 spinal precautions. CGA and cues for logroll to R . Min A for sup<>Sit, CGA for scooting EOB. was able to apply gaitbelt following instruction and followed cues to assist pt w/ sit<>stand using FWW and Min A. Pt ambulated ~25 ft w/ FWW CGA cues for heel toe walking and larger steps. She practiced sitting in chair using BUE to lower slowly to chair and hinge at hips. Pts then assisted her to standing again and provided CGA for additional 25 ft ambulation back to bed. Mod A for LE elevation into bed, pt able to reposition SBA. Left in bed w / alarm on and all needs in reach. Gait Assessment Gait Gait Assistance Required: Contact Guard Assist,1 Person Assist Distance (Feet) 50 Able to Maintain Weight Bearing Status Yes During Gait Assistive Devices Assistive Device Gait Belt,Front Wheeled Walker Orthotic/Prosthetic Devices or Brace: No Gait Deviations General Gait Pattern Decreased Stride Length, Decreased Feet Clearance Factors Limiting Gait Function Factors Limiting Gait Function Decreased Activity Tolerance, Decreased Strength,Difficulty Following Directions,Limited Range of Motion,Pain,Poor Balance,Poor Safety Awareness Comments Gait Comments Cues for heel toe walking, larger steps/avoiding shuffling gait. Stair Climbing Assessment Comments Stair Climbing Comments Pt agrees to do stair training tomorrow prior to d/c. Has 1 platform step, discussed sequencing. Pt reports R leg is stronger than her L leg. PT-Balance Assessment Sitting Balance and Reactions Static Sitting Balance Ability Good Dynamic Sitting Balance Ability Good Standing Balance and Reactions Static Standing Balance Ability Fair Dynamic Standing Balance Ability Fair Device Used FWW M5 PT-IP Objective Assessments Start: 02/28/23 11:23 Freq: NEEDED Status: Active Protocol: Document 02/28/23 10:15 AB (Rec: 02/28/23 11:33 AB [id number]) Orientation Orientation/Cognition Level of Alertness Alert Orientation Name,Place,Situation Language Function Ability Hard of Hearing Safety Awareness Decreased Safety Awareness Memory Description No Deficits Noted Gross Range of Motion Lower Extremity ROM Assessment Within Functional Limits Strength Lower Extremity Strength Assessment Within Functional Limits Coordination Assessment Gross Coordination Gross Coordination WNL Sensation Assessment Sensation Gross Sensation WNL Muscle Tone Muscle Tone WNL Yes M6 PT-IP Treatment Start: 02/28/23 11:23 Freq: NEEDED Status: Active Protocol: Document 02/28/23 14:51 [place] (Rec: 02/28/23 16:38 KS [id number]) Physical Therapy Treatment Education Education Provided Precautions,Weight Bearing Status,Post-Op Packet,Safety M7 PT-IP Assessment and Plan Start: 02/28/23 11:23 Freq: NEEDED Status: Active Protocol: Document 02/28/23 14:51 KS (Rec: 02/28/23 16:38 KS [id number]) PT Summary Assessment and Plan Potential Rehabilitation Potential Good Summary Impairments Pain,ROM,Strength,Balance, Coordination,Sensation,Tone, Cognition,Bed Mobility, Transfers,Gait,Activity Tolerance Progress Towards Goals Progressing Toward Goals Assessment Summary Pt had improvements w/ all mobility this afternoon. CGA for logroll, Min A for sup<> sit, Mod A for sit<>sup, Min A for sit<>stand, and CGA for short distance ambulation. Her was able to follow cues to apply gait belt, assist pt w/ transfers and ambulation. Anticipate pt will be safe to d/c home however will require continuation/ successful completion of caregiver training and stair training prior to d/c. At this time she will need 24/7 assist and would benefit from HHPT. Goals Bed Mobility Goal Standby Assistance Transfer Goal Standby Assistance,Front Wheeled Walker Gait Goal Standby Assistance,Front Wheel Walker Gait Distance 200 Other Goals up/down 1 steps CGA using FWW Days to Meet Goals 5 Frequency of Treatment Frequency Of Treatment Twice a Day Treatment Plan Physical Therapy Treatment Plan Bed Mobility Training,Transfer Training,Gait Training, Therapeutic Exercise,Balance Retraining,Post Op Education, Discharge Planning,Hot or Cold Pack,Neuromuscular Re-ed, Coordination Retraining,Manual Therapy Precautions Lumbar Precautions Log Roll,No Twisting,Limit Bending,Lifting Restriction of 10 lbs,Gait Belt above Incisional Area Recommendations To Nursing Amount of Assist Needed 1 Person Assist Discharge Recommendations PT Discharge Recommendations Home with 24/7 Assist Available,Home Health Transportation Needs at Discharge Wheelchair/Cabulance
[2023-02-28] MEDS: OXYCODONE IR 5 MG TABLET PO ×2 (16:52→20:37)
[2023-02-28] MEDS: SENNOSIDES 8.6 MG TABLET 17.2 MG PO (20:37)
[2023-02-28] MEDS: METFORMIN HCL 500 MG TABLET 1000 MG PO (20:37)
[2023-02-28 21:37] VITALS: BP 123/76; PULSE 90; RESP 18; TEMP 36.6; O2SAT 99
[2023-03-01] MEDS: OXYCODONE IR 5 MG TABLET PO ×2 (00:06→08:46)
[2023-03-01] MEDS: ACETAMINOPHEN 325 MG TABLET 650 MG PO ×3 (00:06→12:41)
[2023-03-01] MEDS: PANTOPRAZOLE DR 40 MG TABLET PO (06:31)
--- NOTE | 2023-03-01 06:56 | PM.DS.1 ---
History of Present Illness History of Present Illness Date Patient Seen: 03/01/23 Time Patient Seen: 06:56 Chief complaint: INPT Narrative: Operative Date/Time/Diagnoses Date of procedure: 02/27/23 Time of procedure: 08:15 Pre-op diagnosis: 1. L4-5, L5-S1 spondylolisthesis 2. Lumbar scoliosis 3. Lumbar spinal stenosis Post-op diagnosis: same Procedure & Clinicians Procedure: 1. L4-5, L5-S1 Postero-lateral and posterior interbody fusion 2. L4-5, L5-S1 interbody cage placement. 3. L4-5, L5-S1 decompressive laminectomy with bilateral facetecomies 4. L4-5, L5-S1 Posterior segmental instrumentation 5. [place] of bone marrow from iliac crest 6. Utilization of microsurgical technique and operating microscope 7. Utilization of robotic assisted navigation Same procedure as scheduled: Yes Indications: Patient has been having chronic back pain and worsening lumbar radiculopathy. Patient failed multiple conservative management with worsening pain weakness and numbness in her lower extremity.? Patient has been having difficulty performing activity of daily living.? After discussing risks benefits of treatment options, patient elected proceed with surgery. Surgeon: Keith Martin Beer Coil Cleaner: Altagracia Del Rio Click Yes if Unassisted: No Anesthesia Type: General Operative Notes Closure Type: primary Specimen(s): none sent Prosthetic devices, grafts, tissues, transplants, or devices: Globus CREO MIS screws, Rise cages Applied: catheter Estimated Blood Loss (mL): 150 Blood products transfused: none Discharge Providers Provider Date of admission: 02/27/23 06:03 Discharge Date: 03/01/23 Primary care physician: TAPAN Arteaga Consults: 02/27/23 13:51 Consult to Occupational Therapy Evaluate & Treat Comment: Physician Instructions: Evaluate and treat Consult to Physical Therapy Evaluate & Treat Comment: Physician Instructions: Evaluate and Treat Discharge provider: Altagracia Del Rio PA-C Summary Hospital Course Discharge Diagnosis: L4-5, L5-S1 spondylolisthesis, Lumbar scoliosis, Lumbar spinal stenosis; s/p lumbar fusion. Hospital Course: Ms Mcallister's hospital course was remarkable for difficulty w/ pain control. On the morning of POD# 2, she was feeling better and wanted to go home. She c/o bilateral leg pain and was started on oral steroids. She was eating and voiding without difficulty. She was evaluated by PT throughout her stay and they felt she was appropriate for discharge home. Exam Vital Signs (past 8 hours): Oxygen Delivery Method Room Air Oxygen Flow Rate 0 Narrative Exam Narrative: 5/5 strength in hip flexors, quadriceps, hamstrings, DF, PF, EHL bilaterally. Sensation to light touch intact throughout BLE. Calves soft, compressible, nontender and without palpable cords or masses. Dressings placed intraoperatively CDI. Objective Labs 02/28/23 04:30 [facility] Medical History Asthma Depression Diabetes (~2020) Diverticulosis Elevated cholesterol Hearing impaired HTN (hypertension) Sciatica Spinal stenosis TIA (transient ischemic attack) (~2020) Surgical History History of hysterectomy Hx of bilateral cataract extraction Hx of tubal ligation Social History household members: spouse Smoking Status: Former smoker Discharge Assessment & Plan Assessment and Plan Assessment: L4-5, L5-S1 spondylolisthesis, Lumbar scoliosis, Lumbar spinal stenosis; s/p lumbar fusion Plan of Treatment: Discharge home, multimodal pain control to include steroid taper, f/u in office in 2 weeks as scheduled. Discharge Plan Discharge Plan Patient Disposition: Home Discharge orders & Medications Prescriptions: New docusate sodium 100 mg Capsule 100 mg PO BID PRN (Reason: constipation) Qty: 60 1RF hydroxyzine pamoate 25 mg Capsule 25 mg PO Q4HR PRN (Reason: muscle spasm) Qty: 90 0RF oxycodone 5 mg Tablet 5 mg PO Q4-6H PRN (Reason: Pain, Moderate (4-6)) Qty: 60 0RF methylprednisolone [Methylpred DP] 4 mg tablets,dose pack See Rx Instructions .ROUTE .COMPLEX Qty: 21 0RF Rx Instructions: orally per package directions Continued metformin 500 mg Tablet 500 mg PO SEEINSTR Patient Comments: 500mg qam, 1000mg bedtime bupropion HCl 150 mg Tablet Sustained-Release 12 Hr 300 mg PO QAM omeprazole 40 mg Capsule,Delayed Release(Dr/Ec) 40 mg PO DAILY acetaminophen 500 mg Tablet 500 mg PO QD-BID PRN (Reason: Pain) amlodipine 10 mg Tablet 10 mg PO DAILY duloxetine 60 mg Capsule,Delayed Release(Dr/Ec) 60 mg PO DAILY aspirin 81 mg Capsule 81 mg PO DAILY Discontinued naproxen sodium [Aleve] 220 mg Capsule 220 mg PO QD-BID PRN (Reason: Pain) Follow up/Referrals: Adelaide Alvarez, FERNANDEZ-Nereida [Primary Care Provider] - Keith Martin MD [Physician] - As previously scheduled (Follow up with Dr Martin on 03/14/2023 @ 10:50 am at [facility] in [place].) Diet/Activity/Treatments Diet: Diet as Tolerated Activity: No deep bending or twisting at the waist. No lifting more than 10 pounds. Skin/Wound/Dressing Care Report to your healthcare provider any signs of infection, such as:: chills, fever, night sweats, unusual drainage and unusual redness Dressing: May shower. Keep dressing as dry as possible. If dressing becomes wet or dirty, may remove and replace with clean, dry gauze. No bathing or otherwise soaking incisions. Do not apply any creams, lotions, or ointments to incisions. Visit Report/Discharge Packet Instructions: DI for Prescription Opioid Use, DI for Transforaminal Lumbar Interbody Fusion Stand Alone Forms: Patient Portal/API, Stroke Signs & Symptoms, Surgery Discharge Discharge Data Primary Care Provider: Adelaide Alvarez Quality VTE Deep Vein Thrombosis/Pulmonary Embolism Present on Admission: No
[2023-03-01 07:00] VITALS: BP 123/72; PULSE 80; RESP 17; TEMP 36.4; O2SAT 96
[2023-03-01 08:04] VITALS: BP 115/75; PULSE 89; RESP 18; TEMP 36.7; O2SAT 91
[2023-03-01] MEDS: polyethylene glycoL 3350 17 GM POWD.PACK PO (08:45)
[2023-03-01] MEDS: ASPIRIN EC 81 MG TABLET PO (08:45)
[2023-03-01] MEDS: buPROPion SR 150 MG TAB 300 MG PO (08:45)
[2023-03-01] MEDS: NAPROXEN 250 MG TABLET PO (08:45)
[2023-03-01] MEDS: MAGNESIUM HYDROXIDE 30 ML UDC PO (08:45)
[2023-03-01] MEDS: DOCUSATE 100 MG CAPSULE PO (08:46)
[2023-03-01] MEDS: AMLODIPINE 5 MG TABLET 10 MG PO (08:46)
[2023-03-01] MEDS: hydrOXYzine pamoate 25 MG CAPSULE PO ×2 (08:46→12:41)
[2023-03-01] MEDS: dexAMETHasone 4 MG TABLET PO (08:46)
[2023-03-01] MEDS: METFORMIN HCL 500 MG TABLET PO (08:46)
[2023-03-01] MEDS: DULOXETINE 30 MG CAPSULE 60 MG PO (08:46)
--- NOTE | 2023-03-01 11:06 | PT.IPTN ---
Current Diagnoses Spondylolisthesis, lumbar region (02/27/23) Spinal stenosis, lumbar region with neurogenic claudication (02/27/23) Arthrodesis status (02/27/23) Surgery Performed Operation Date: 02/27/23 07:45 Actual Procedures p L4-5, L5-S1 TLIF w. posterior instrument-Robot - Keith Martin MD Physical Therapy Treatment Note M2 PT-IP Current Condition Start: 02/28/23 11:23 Freq: NEEDED Status: Active Protocol: Document 03/01/23 10:25 SP (Rec: 03/01/23 11:40 SP [id number]) Physical Therapy Current Condition Current Condition Evaluation Date 02/28/23 Treatment Diagnosis s/p L4-5, L5S1 TLIF; difficulty in walking Onset Date 02/27/23 M3 PT-IP Subjective Start: 02/28/23 11:23 Freq: NEEDED Status: Active Protocol: Document 03/01/23 10:25 SP (Rec: 03/01/23 11:40 SP [id number]) Subjective Physical Therapy Visit Type Type Treatment Note Visit Start Time 10:25 Visit Stop Time 11:06 Total Visit Minutes 41 Notes completed caregiver training with providing assistance to pt needed during all mobility. Number of FIELD PIPE LINES SUPERVISOR Visits 2 Physical Therapy Visit Comments Patient Comments Agreeable to work w/ PT Patient Goals Return home with to assist her when needed. Therapy Pain Assessment Pain When Pain Assessed During Mobility Pain Present Pain Present Pain Reported Location back Intensity 5 Scale Used increases to 8/10 with mobility Description With Movement Pain Behaviors Facial Grimacing,Guarding, Wincing Pain Management Techniques Distraction,Re-positioning, Timing of Activity with Medications M4 PT-IP Mobility and Gait Start: 02/28/23 11:23 Freq: NEEDED Status: Active Protocol: Document 03/01/23 10:25 SP (Rec: 03/01/23 11:40 SP [id number]) PT-Bed Mobility Assessment Rolling Type of Rolling Log Rolling,Roll to Right Level of Assist Contact Guard Assistance,1 Person Assistance Supine to Sit Supine to Sit Minimal Assistance,1 Person Assistance Sit to Supine Sit to Supine Moderate Assistance,1 Person Assistance Scooting Scooting to Edge of Bed Contact Guard Assistance PT-Transfer Assessment Sit to and From Stand Sit to and from Stand Contact Guard Assistance,1 Person Assistance,Use of Upper Extremities Equipment Transfer Assistive Device Gait Belt,Front Wheeled Walker Orthotic/Prosthetic Devices or Brace: No Transfers Transfer Destination Bed,Chair Transfer Technique ambulated w/ FWW Transfer Ability Level of Assist Contact Guard Assistance,Use of Upper Extremities Comments Mobility Comments Pt recalled 3/3 precautions, completed LR R with use R bed rail CGA and ed knees with shoulders during roll. Able to complete LEs to EOB self CG- Min A by end range full sit, CGA scoot to EOB and STS, cued push from bed come to stand. Cued wt shift/ BLE WB awareness pre gait, Gait around room w/ FWW to toilet approx 20 ft CGA slow descent use grab bar L and positioned side BSC on R for assimulate use BSC in bathroom at home. Pt voided and self pericare seated. STS close SBA with UE support on rails. GAit to sink 10 ft (proper positioning of FWW self), washed hands non supported good back positioning, gait to chair CGAw/ FWW and reach back sit with occasional cue hip hinge with straigth back slow descent, good form. Seated rest in chair. STS and gait to 1 PF step completed CGA with assist FWW proper full positioning then gait around room and back to R side bed approx 30 more ft (45 ft total ). Stand>sit CGA cued reach back sit>R SL Mod A via BLE into bed> LR L to supine. Lateral scoot and BLE repositioning self with cues, provided pillow under thighs for PPT LS support with good feedback response. Pt is ok to return home with to assist her 25/03 initially and recommending HHPT for increased strength and gait progression toward return to I in functional mobility, pt/ in agreement. Gait Assessment Gait Gait Assistance Required: Contact Guard Assist,1 Person Assist Distance (Feet) 45 Able to Maintain Weight Bearing Status Yes During Gait Assistive Devices Assistive Device Gait Belt,Front Wheeled Walker Orthotic/Prosthetic Devices or Brace: No Gait Deviations General Gait Pattern Decreased Stride Length, Decreased Feet Clearance Factors Limiting Gait Function Factors Limiting Gait Function Decreased Activity Tolerance, Decreased Strength,Limited Range of Motion,Pain,Poor Safety Awareness Comments Gait Comments Cues for increase stride as able, decreased BUE WB on FWW, pivot turns w/FWW and small marching steps to maintain no twisting LB, light TA engagement during transfers/ mobility needed to support back support. Stair Climbing Assessment Evaluation Level of Assist On Stairs Contact Guard Assistance, Minimal Assistance,1 Person Assistance Devices Stair Climbing Assistive Devices Front Wheel Walker Technique/Endurance Stair Climbing Direction Ascend and Descend Stair Climbing Technique Step to Step Number of Steps Climbed 1 Stair Climbing Set # Repetitions (reps) 1 Comments Stair Climbing Comments Cued provide CGA and little support for safety FWW full 4 pt on PF step ( assimulate enter/exit home), good carryover with cue for hip hinge for FWW positioning Min A descend step. PT-Balance Assessment Sitting Balance and Reactions Static Sitting Balance Ability Normal Dynamic Sitting Balance Ability Good Standing Balance and Reactions Static Standing Balance Ability Good Dynamic Standing Balance Ability Fair Device Used FWW M5 PT-IP Objective Assessments Start: 02/28/23 11:23 Freq: NEEDED Status: Active Protocol: Document 02/28/23 10:15 AB (Rec: 02/28/23 11:33 AB [id number]) Orientation Orientation/Cognition Level of Alertness Alert Orientation Name,Place,Situation Language Function Ability Hard of Hearing Safety Awareness Decreased Safety Awareness Memory Description No Deficits Noted Gross Range of Motion Lower Extremity ROM Assessment Within Functional Limits Strength Lower Extremity Strength Assessment Within Functional Limits Coordination Assessment Gross Coordination Gross Coordination WNL Sensation Assessment Sensation Gross Sensation WNL Muscle Tone Muscle Tone WNL Yes M6 PT-IP Treatment Start: 02/28/23 11:23 Freq: NEEDED Status: Active Protocol: Document 03/01/23 10:25 SP (Rec: 03/01/23 11:40 SP [id number]) Physical Therapy Treatment Exercises Exercises Ankle Pumps,Heel Slides Education Education Provided Precautions,Weight Bearing Status,Safety M7 PT-IP Assessment and Plan Start: 02/28/23 11:23 Freq: NEEDED Status: Active Protocol: Document 03/01/23 10:25 SP (Rec: 03/01/23 11:40 SP [id number]) PT Summary Assessment and Plan Potential Rehabilitation Potential Good Status of Condition at Evaluation Evolving Summary Impairments Pain,ROM,Strength,Balance, Coordination,Sensation,Tone, Cognition,Bed Mobility, Transfers,Gait,Activity Tolerance Progress Towards Goals Progressing Toward Goals,Slow Progress due to Pain,Slow Progress due to Activity Tolerance Assessment Summary Pt had improvements w/ all mobility this afternoon. CGA for logroll, Min A for sup<> sit, Mod A for sit<>sup, CGA for sit<>stand, and CGA with increased distance gait tolerance with FWW but required rest breaks between activities due to decreased endurance and reports pain. Pt completed 1 PF step CG/Min A for FWW support positioning. Her was able to follow occasional cues to apply gait belt, assist pt w/ transfers and ambulation. Pt is ok to return home with to assist her 24 assist and would benefit from HHPT. Goals Bed Mobility Goal Standby Assistance Transfer Goal Standby Assistance,Front Wheeled Walker Gait Goal Standby Assistance,Front Wheel Walker Gait Distance 200 Other Goals up/down 1 steps CGA using FWW Days to Meet Goals 5 Frequency of Treatment Frequency Of Treatment Twice a Day Treatment Plan Physical Therapy Treatment Plan Bed Mobility Training,Transfer Training,Gait Training, Therapeutic Exercise,Balance Retraining,Post Op Education, Discharge Planning,Hot or Cold Pack,Neuromuscular Re-ed, Coordination Retraining,Manual Therapy Other Recommendations and Next Treatment Bed mob, STS, further distance Focus gait w/ fWW, increase stride. Precautions Lumbar Precautions Log Roll,No Twisting,Limit Bending,Lifting Restriction of 10 lbs,Gait Belt above Incisional Area Other Precautions Good recall 3/3 precautions, occasional cue for shlds with knees/hips during bed mob/ pivot turns gait. Encouraged walking every hour when awake for mobility strengthening awareness, circulation decrease risk for DVT and keep log if needed for medication as needed for pain control. Recommendations To Nursing Amount of Assist Needed Standby Assistance,1 Person Assist Discharge Recommendations PT Discharge Recommendations Home with 24/ Assist Available,Home Health Transportation Needs at Discharge Private Vehicle
[2023-03-01] MEDS: OXYCODONE IR 10 MG TABLET PO (11:20)
--- NOTE | 2023-03-01 11:35 | CM.DPC ---
DCP Cont: Spoke to P.T, and patient. She is discharging home today, spouse at bedside. She is hopeful for home health, would like [facility], does not want [facility]. Gave patient pamphlet, and confirmed that RN, P.T, and O.T. will be ordered. Completed face to face, orders, and faxed this with DC Summary, H&P, P.T. notes to [facility]. Called over at [facility] intake, and updated Leonides, she will watch for referral. P: Patient is discharging with [facility] today. Francesca Riggs Rn/Biomedical Engineering Professor
--- NOTE | 2023-03-01 12:38 | OT.IP.TRT ---
Current Diagnoses Spondylolisthesis, lumbar region (02/27/23) Spinal stenosis, lumbar region with neurogenic claudication (02/27/23) Arthrodesis status (02/27/23) Surgery Performed Operation Date: 02/27/23 07:45 Actual Procedures p L4-5, L5-S1 TLIF w. posterior instrument-Robot - Keith Martin MD Occupational Therapy Treatment Note M2 OT-IP Current Condition Start: 02/28/23 16:51 Freq: Status: Active Protocol: Document 02/28/23 12:05 [facility] (Rec: 02/28/23 17:20 [facility] [id number]) Occupational Therapy Current Condition Current Condition Evaluation Date 02/28/23 Treatment Diagnosis S/P L 4-5, L5-S1 Diagnosis Onset Date 02/27/23 Post Operative Precautions Lumbar Precautions Log Roll,No Twisting,Limit Bending,Lifting Restriction of 10 lbs,Gait Belt above Incisional Area M3 OT- IP Subjective and Pain Start: 02/28/23 16:51 Freq: Status: Active Protocol: Document 03/01/23 12:05 [facility] (Rec: 03/01/23 13:02 [facility] [id number]) OT- Subjective Occupational Therapy Visit Type Type Treatment Note Visit Start Time 12:05 Visit Stop Time 12:38 Total Visit Minutes 33 Occupational Therapy Visit Comments Patient Comments Pt wanting to get dressed and in the room for caregiver training. Patient/Caregiver Goals To go home. OT Pain Assessment Pain When Pain Assessed During Mobility Pain Present Pain Present Pain Reported Location back Intensity 5 Scale Used Numeric (0 - 10) M4 OT- IP ADL's Start: 02/28/23 16:51 Freq: Status: Active Protocol: Document 03/01/23 12:05 [facility] (Rec: 03/01/23 13:02 [facility] [id number]) OT PNQ-Hvli-Vyogkib General Evaluation Self-Feeding Ability Independent OT ADL-Grooming General Evaluation Grooming Ability Independent OT ADL-Oral Care General Eval Oral Care Ability Independent OT ADL-Dressing General Eval Lower Body Dressing Ability Moderate Assistance,Maximum Assistance Comments OT Dressing Comments Assist for shoes and socks. Pt able to practice use of LB dressing equipment. OT ADL-Toileting Comments OT Toileting Comments Pt not having to go. OT ADL-Bathing Comments OT Bathing Comments Pt just wanting to shower at home. M5 OT- IP IADL's Start: 02/28/23 16:51 Freq: Status: Active Protocol: Document 02/28/23 12:05 [facility] (Rec: 02/28/23 17:20 [facility] [id number]) OT-Instrumental Activities of Daily Living Deficits IADL Deficits Identified Deficits Home Safety Awareness Awareness of Need for Assistance at Home Good Awareness Ability to Problem Solve Emergency Able to Problem Solve Situations Home Safety Comments Pt has supportive family to be able to assist with her needs . M6 OT- IP Functional Cognition Start: 02/28/23 16:51 Freq: Status: Active Protocol: Document 03/01/23 12:05 [facility] (Rec: 03/01/23 13:02 [facility] [id number]) Cognitive Factors Limiting Selfcare Function Cognitive Comments Cognitive Assessment Comments Pt at times needing reminders for her back precautions. M7 OT- IP Mobility and Balance Start: 02/28/23 16:51 Freq: Status: Active Protocol: Document 03/01/23 12:05 [facility] (Rec: 03/01/23 13:02 [facility] [id number]) OT- Bed Mobility Assessment Supine to Sit Supine to Sit Assist Minimal Assistance Sit to Supine Sit to Supine Assist Minimal Assistance OT-Transfer Assessment Sit to and From Stand Sit to and from Stand Minimal Assistance Transfers Transfer Ability Standby Assistance,Contact Guard Assistance Technique Transfer Destination Bed,Chair Devices Transfer Assistive Devices Gait Belt,Front Wheeled Walker Comments Mobility Comments Able to train pt's for bed mobility , assist for transfers and how to assist for ADl needs. Pt's needing addition practice for bed mobility needs and able to practice with the as pt getting tired. Pt t go home with 24/7 available asisst and home health. OT- Balance Assessment Sitting Balance and Reactions Static Sitting Balance Ability Good Dynamic Sitting Balance Ability Good Standing Balance and Reactions Static Standing Balance Ability Fair Dynamic Standing Balance Ability Fair M9 OT- IP Assessment and Plan Start: 02/28/23 16:51 Freq: Status: Active Protocol: Document 03/01/23 12:05 [facility] (Rec: 03/01/23 13:02 [facility] [id number]) OT Summary Assessment and Plan Potential Rehabilitation Potential Good Analytic Complexity at Evaluation Low Summary OT Impairments Pain,Strength,Balance, Functional Mobility,Dressing, Toileting,Bathing,Toilet Transfers,Shower Transfers, Activity Tolerance Progress Towards Goals Progressing Toward Goals Assessment Summary Pt's able to participate in caregiver training and able to safely assist pt for ADl and mobility needs after further education today. Pt to have 24/7 assist and home health. Goals Grooming Goal Independent Dressing Goal Independent Toileting Goal Independent Bathing Goal Minimal Assistance Toilet Transfer Goal Independent Shower Transfer Goal Standby Assistance Patient/Caregiver Education Goal Demonstrate Post-Op Precautions,Caregiver Independent Assisting Patient Days to Meet Goals 6 Frequency of Treatment Frequency Of Treatment Once a Day Treatment Plan OT Treatment Plan ADL Training,Functional Mobility,Patient/Family Education,Discharge Planning Other Treatment Recommendations and Next caregiver training Treatment Focus Discharge Recommendations OT Discharge Recommendations Home with 24/7 Assist Available,Home Health Home Equipment Needs hand held shower spray, sock aid Transportation Needs at Discharge Private Vehicle
== END 2023-03-01 13:35 | disposition home health service (06) | DRG 455 ==
PROVIDERS: Admitting Provider Orthopaedic Surgery Orthopaedic Surgery of the Spine; PCP Registered Nurse; Referring Provider Orthopaedic Surgery Orthopaedic Surgery of the Spine; Visit Provider Orthopaedic Surgery Orthopaedic Surgery of the Spine
PROC: 0SG00AJ Fusion of Lumbar Vertebral Joint with Interbody Fusion Device, Posterior Approach, Anterior Column, Open Approach (ICD-10-PCS; principal; 2023-02-27 07:45)
DX: M43.16 Spondylolisthesis, lumbar region (principal); M48.061 Spinal stenosis, lumbar region without neurogenic claudication; M41.56 Other secondary scoliosis, lumbar region; G89.18 Other acute postprocedural pain; E11.9 Type 2 diabetes mellitus without complications; I10 Essential (primary) hypertension; F32.A Depression, unspecified; Z20.822 Contact with and (suspected) exposure to COVID-19; Z79.84 Long term (current) use of oral hypoglycemic drugs; Z87.891 Personal history of nicotine dependence
CPT/HCPCS: 36415; 72100; 76000; 82962; 85014; 85018; 94762; 97116; 97162; 97165; 97530; 97535; C1713; C9290; J0171; J0330; J0690; J1100; J1170; J1885; J2405; J2704; J3010; J3410

== ENCOUNTER → 2023-11-06 11:52 | Outpatient (CLI) | payer MEDICARE, OTHER, SELFPAY ==
[2023-02-27 14:10] VITALS: BMI 26.1
--- NOTE | 2023-11-06 | DI.CT.S_ITS ---
PROCEDURE: CT LUMBAR SPINE WO CON INDICATIONS: SPINAL STENOSIS, LUMBAR REGION TECHNIQUE: Noncontrast 0.8 mm thick sections acquired from the T12 level to the sacrum. Sagittal and coronal reformats were constructed. For radiation dose reduction, the following was used: automated exposure control. COMPARISON: [facility], CT, CT LUMBAR SPINE WO CON, 01/24/2023, 12:51. [facility], MR, MR LUMBAR SPINE WO CON, 01/03/2023, 10:48. [facility], CR, XR LUMBAR SPINE 2 OR 3 VIEWS, 10/09/2023, 11:12. FINDINGS: Image quality: There is artifact associated with the metallic hardware. Bones: No acute vertebral body compression fractures. No suspicious lytic or blastic bony lesions. No pars defects. Iupy-mz-zvsggull levoconvex lumbar scoliosis is seen. Mild grade 1 anterolisthesis is seen at the L4-L5 level. No definite associated pars defects can be seen. Postoperative changes are seen, with bilateral pedicle screws at the L4, L5, and S1 levels. The screws appear well placed. Vertical fixation rods are seen. Disc spacers are seen at L4-L5 and L5-S1 There is mild lucency seen adjacent to the L4 screws, left worse than right. Minimal lucency can also be seen adjacent to the S1 screws. T12-L1: No significant abnormality is seen. L1-L2: Level within normal limits. L2-L3: Mild loss of disc height is seen. Mild to moderate disc bulge is seen, which is eccentric to the left side. Mild facet joint hypertrophy is seen. No significant neural foraminal narrowing is seen. Minimal central canal narrowing is seen. When comparison is made with the prior images, these findings are similar. L3-L4: Moderate loss of disc height is seen on the right-side. Vacuum disc phenomenon is seen at this level. Endplate irregularity and sclerosis can be seen. Bridging endplate osteophytes can be seen on the right. Mild facet joint hypertrophy is seen. Mild bilateral neural foraminal narrowing is seen. No significant central canal narrowing is seen. When comparison is made with the prior images, these findings are similar. L4-L5: There is postoperative change seen at this level. Bulge no neural foraminal narrowing is seen. No central canal narrowing is seen. The degrees of degenerative narrowing are clearly improved compared to the prior CT. L5-S1: Mild generalized disc bulge is seen. At least moderate facet hypertrophy is seen. There is moderate left-sided and no right-sided neural foraminal narrowing. No central canal narrowing is seen. These degenerative changes are improved compared to the prior. Soft tissues: No retroperitoneal masses or hematomas. Visualized aorta is normal in caliber. Atherosclerotic calcification is noted. IMPRESSION: L4 through S1 postoperative hardware seen. There is a mild degree of lucency seen adjacent to the L4 screws and a minimal degree of lucency seen adjacent to the S1 screws. Please consider early loosening change. Grade 1 L4-L5 anterolisthesis is again seen. Improved degenerative narrowing seen within the lower lumbar spine compared to the preoperative CT. Dictated by: Elmer Dobson M.D. on 11/06/2023 at 17:17 Approved by: Elmer Dobson M.D. on 11/06/2023 at 17:24
== END ==
LOC: CT 11:53
PROVIDERS: PCP Registered Nurse; Referring Provider Orthopaedic Surgery Orthopaedic Surgery of the Spine; Visit Provider Orthopaedic Surgery Orthopaedic Surgery of the Spine
DX: M48.062 Spinal stenosis, lumbar region with neurogenic claudication (principal); M43.16 Spondylolisthesis, lumbar region; M51.36 Other intervertebral disc degeneration, lumbar region; M47.816 Spondylosis without myelopathy or radiculopathy, lumbar region; M51.37 Other intervertebral disc degeneration, lumbosacral region; M47.817 Spondylosis without myelopathy or radiculopathy, lumbosacral region; Z98.1 Arthrodesis status; M48.07 Spinal stenosis, lumbosacral region
CPT/HCPCS: 72131